=== PATIENT | male | born 1995 | race African-American/Black ===

== ENCOUNTER 2017-11-18 14:25 | Emergency (ER) | payer OTHER | END 2017-11-18 18:39 | disposition home or self-care (01) | LOC: M ED 14:25 | DX: M25.561 Pain in right knee (principal) | CPT/HCPCS: 76882 ==

== ENCOUNTER 2018-01-17 08:30 | Emergency (ER) | payer OTHER | END 2018-01-17 09:12 | disposition home or self-care (01) | LOC: M ED 08:30 | DX: S06.0X0A Concussion without loss of consciousness, initial encounter (principal); W22.09XA Striking against other stationary object, initial encounter; Y92.89 Other specified places as the place of occurrence of the external cause; Y99.1 Military activity | CPT/HCPCS: 99282 ==

== ENCOUNTER 2018-12-10 21:24 | Emergency (ER) | payer OTHER ==
[~2018-12-10] VITALS: Ht 172.7 cm; Wt 90.0 kg
[2018-12-10 21:24] VITALS: BP 151/80
[~2018-12-10 21:24] MED LIST: IBUP-1022 PO; ZOFR4TAB14 PO
[2018-12-10] MEDS ORDERED: AMOX875T PO (21:49)
[2018-12-10] MEDS ORDERED: AMOXICILLIN 500 MG CAP PO ONE (22:00)
== END 2018-12-10 22:12 | disposition home or self-care (01) ==
LOC: M ED 21:24
DX: K02.9 Dental caries, unspecified (principal); K05.10 Chronic gingivitis, plaque induced